=== PATIENT | male | born 1960 | race Asian ===

== ENCOUNTER 2023-04-03 17:26 | Emergency (ER) | payer OTHER, MEDICAID ==
[~2023-04-03] VITALS: Ht 180.3 cm; Wt 72.6 kg
[~2023-04-03 17:26] MED LIST: ACET325T PO; ASCO-339 PO; FERR-57 PO; GLIM4TAB PO; LOSA-413 PO; MOM PO; MULT PO; NEU300 PO; PANT20TA2 PO; PENT400T17 PO; PRAZ1CAP5 PO; QUET50TA PO; VENL150C53 PO
[2023-04-03 17:33] VITALS: BP_SYST 120; PULSE 76; RESP 16; TEMP 97.7; O2SAT 98
[2023-04-03] MEDS ORDERED: HYDR-3917 PO (20:45)
[2023-04-03] MEDS: HYDROcodone/ACETAMIN 5-325 MG TAB (NORCO/ VICODIN) PO ONE (21:13)
== END 2023-04-03 21:13 | disposition home or self-care (01) ==
LOC: SED 17:26
DX: S82.092A Other fracture of left patella, initial encounter for closed fracture (principal); S83.91XA Sprain of unspecified site of right knee, initial encounter; J45.909 Unspecified asthma, uncomplicated; Z88.4 Allergy status to anesthetic agent; Z79.899 Other long term (current) drug therapy; W01.0XXA Fall on same level from slipping, tripping and stumbling without subsequent striking against object, initial encounter; Y93.89 Activity, other specified; Y92.89 Other specified places as the place of occurrence of the external cause; Y99.8 Other external cause status
CPT/HCPCS: 73560; 99283

== ENCOUNTER 2023-05-24 15:27 | Inpatient (IN) | payer OTHER, MEDICAID ==
[~2023-05-24] VITALS: Ht 180.3 cm; Wt 82.6 kg
[~2023-05-24 15:27] MED LIST changes: +HYDR-3917 PO
[2023-05-24 15:37] VITALS: BP_SYST 103; PULSE 76; RESP 18; TEMP 97.3; O2SAT 98
[2023-05-24 17:01] LABS: MEAN CORPUSCULAR HEMOGLOBIN 31 pg (27-31); MEAN CORPUSCULAR HGB CONC 35 % (32-36); MEAN CORPUSCULAR VOLUME 86 fL (79.0-98.0); PLATELET COUNT (AUTO) 118 K/uL (130-430); RED BLOOD CELL COUNT(AUTO) 2.27 MIL/uL (4.2-6.2); RED CELL DISTRIBUTION WIDTH 17.1 % (9.0-15.0)
[2023-05-24 17:04] LABS: ANION GAP 9 (5-15); CALCIUM 7.8 mg/dL (8.4-11.0); CARBON DIOXIDE 24 mmol/L (23-29); CHLORIDE 104 mmol/L (98-107); GFR AFRICAN AMERICAN 21 mL/min (>90); GLUCOSE 136 mg/dL (74-106); POTASSIUM 4.5 mmol/L (3.5-5.1); SODIUM SERUM 137 mmol/L (136-145); UREA NITROGEN, BLOOD 57 mg/dL (8-21)
[2023-05-24 17:05] LABS: GFR NON AFRICAN-AMERICAN 18 mL/min (>90)
[2023-05-24 17:10] LABS: HEMATOCRIT 19.6 % (36-54); HEMOGLOBIN 6.9 g/dL (14.0-18.0)
[2023-05-24 18:00] LABS: BAND % (MANUAL) 0 % (0-6); BASOPHILS % (MANUAL) 0 % (0-2); EOSINOPHILS % (MANUAL) 4 % (0-7); LYMPHOCYTES % (MANUAL) 29 % (20-46); MONOCYTES % (MANUAL) 7 % (0-11)
[2023-05-24 18:01] LABS: ANISOCYTOSIS 1+; OVALOCYTES MODERATE; PLATELET ESTIMATE DECREASED (ADEQUATE); TEAR DROP CELLS FEW
[2023-05-24 18:30] LABS: INR 1.1 (0.80-1.20); PROTHROMBIN TIME 11.8 SECS (9.5-12.5)
[2023-05-24] MEDS ORDERED: SODI10PO PO (18:50)
[2023-05-24] MEDS ORDERED: NIFE-129 PO (18:50)
[2023-05-24] MEDS ORDERED: CARV25TA55 PO (18:50)
[2023-05-24] MEDS ORDERED: ERGO1250 (18:50)
[2023-05-24] MEDS ORDERED: SITA100T11 PO (18:50)
[2023-05-24] MEDS ORDERED: ESCI-6 PO (18:50)
[2023-05-24] MEDS ORDERED: MIRA50TA PO (18:50)
[2023-05-24] MEDS ORDERED: TORS5TAB PO (18:50)
[2023-05-24] MEDS ORDERED: FINA-37 PO (18:50)
[2023-05-24] MEDS ORDERED: INSU100I26 SQ (18:50)
[2023-05-24] MEDS ORDERED: TAMS-11 PO (18:50)
[2023-05-24] MEDS ORDERED: ALBMDI INH (18:50)
[2023-05-24 21:29] VITALS: BP_SYST 125; PULSE 75; RESP 20; TEMP 98.7
[2023-05-24 21:40] VITALS: O2SAT 98
[2023-05-25] VITALS (7 sets, daily range): BP systolic 129–181; PULSE 76–89; RESP 16–18; TEMP 97.3–97.8; O2SAT 97–99
[2023-05-25 08:03] LABS: BASOPHILS % (AUTO) 0.9 % (0.0-2.0); EOSINOPHILS # (AUTO) 0.1 K/uL (0.0-0.4); EOSINOPHILS % (AUTO) 6.8 % (0.0-4.0); HEMATOCRIT 26.8 % (36-54); LYMPHOCYTES # (AUTO) 0.5 K/uL (1.0-5.5); LYMPHOCYTES % (AUTO) 23.7 % (20.5-51.5); MEAN CORPUSCULAR HEMOGLOBIN 29 pg (27-31); MEAN CORPUSCULAR HGB CONC 34 % (32-36); MEAN CORPUSCULAR VOLUME 85 fL (79.0-98.0); MONOCYTES # (AUTO) 0.2 K/uL (0.0-1.0); MONOCYTES % (AUTO) 11.7 % (1.7-9.3); NEUTROPHILS # (AUTO) 1.1 K/uL (1.8-7.7); PLATELET COUNT (AUTO) 112 K/uL (130-430); RED BLOOD CELL COUNT(AUTO) 3.16 MIL/uL (4.2-6.2); RED CELL DISTRIBUTION WIDTH 17.6 % (9.0-15.0)
[2023-05-25 08:05] LABS: CALCIUM 7.8 mg/dL (8.4-11.0); CREATININE 3.28 mg/dL (0.55-1.30); POTASSIUM 4.3 mmol/L (3.5-5.1)
[2023-05-25 08:17] LABS: ALBUMIN 2.5 g/dL (3.4-4.8); THYROID STIMULATING HORMONE 1.11 uIu/mL (0.34-4.82); TOTAL BILIRUBIN 0.6 mg/dL (0.0-1.0)
[2023-05-25 08:19] LABS: WHITE BLOOD COUNT (AUTO) 1.9 K/uL (4.8-10.8)
[2023-05-25 08:20] LABS: NEUTROPHILS % (AUTO) 56.9 % (40.0-70.0)
[2023-05-25] MEDS ORDERED: PANT40TA45 PO (10:42)
[2023-05-25] MEDS ORDERED: SITA25TA3 PO (10:42)
[2023-05-25] MEDS ORDERED: GABA600T PO (10:42)
[2023-05-25] MEDS ORDERED: NIFE-75 PO (10:42)
[2023-05-25] MEDS ORDERED: MAGN250T10 PO (10:43)
[2023-05-25] MEDS: GABAPENTIN 300 MG CAPSULE PO SCH (15:14)
[2023-05-25] MEDS: CARVEDILOL 25 MG TABLET (COREG) PO SCH (21:40)
[2023-05-26] VITALS: BP_SYST 158; PULSE 82; RESP 16; TEMP 97.6; O2SAT 97
[2023-05-26 06:00] LABS: BASOPHILS % (AUTO) 0.9 % (0.0-2.0); EOSINOPHILS # (AUTO) 0.1 K/uL (0.0-0.4); EOSINOPHILS % (AUTO) 5.6 % (0.0-4.0); HEMOGLOBIN 9.4 g/dL (14.0-18.0); LYMPHOCYTES # (AUTO) 0.6 K/uL (1.0-5.5); LYMPHOCYTES % (AUTO) 24.7 % (20.5-51.5); MEAN CORPUSCULAR HEMOGLOBIN 28 pg (27-31); MEAN CORPUSCULAR HGB CONC 34 % (32-36); MEAN CORPUSCULAR VOLUME 84 fL (79.0-98.0); MONOCYTES # (AUTO) 0.3 K/uL (0.0-1.0); MONOCYTES % (AUTO) 12.1 % (1.7-9.3); NEUTROPHILS # (AUTO) 1.4 K/uL (1.8-7.7); PLATELET COUNT (AUTO) 110 K/uL (130-430); RED BLOOD CELL COUNT(AUTO) 3.33 MIL/uL (4.2-6.2); RETICULOCYTE COUNT 0.8 % (0.5-1.5); WHITE BLOOD COUNT (AUTO) 2.4 K/uL (4.8-10.8)
[2023-05-26 06:50] LABS: TOTAL IRON BIND. CAPACITY 168 ug/dL (250-450)
[2023-05-26 07:06] LABS: CREATININE 3.2 mg/dL (0.55-1.30); PHOSPHORUS 3.6 mg/dL (2.7-4.5); POTASSIUM 4.3 mmol/L (3.5-5.1)
[2023-05-26 07:40] LABS: NEUTROPHILS % (AUTO) 56.7 % (40.0-70.0)
[2023-05-26 08:00] VITALS: BP_SYST 177; PULSE 67; RESP 13; TEMP 98.4; O2SAT 97
[2023-05-26] MEDS ORDERED: SODIUM ZIRCONIUM CYCLOSILICATE 10 GM POWD.PACK PO SCH (09:00)
[2023-05-26] MEDS ORDERED: NON-FORMULARY MEDICATION (Mirabegron (Myrbetriq) 50 MG) PO SCH (09:00)
[2023-05-26] MEDS: CITALOPRAM HYDROBROMIDE 20 MG TABLET PO SCH (09:35)
[2023-05-26] MEDS: TAMSULOSIN HCL 0.4 MG CAP PO SCH (09:35)
[2023-05-26] MEDS: PANTOPRAZOLE SODIUM 40 MG TAB PO SCH (09:36)
[2023-05-26] MEDS: MAGNESIUM OXIDE 400 MG TABLET PO SCH (09:36)
[2023-05-26] MEDS: FINASTERIDE 5 MG TABLET (PROSCAR) PO SCH (09:36)
[2023-05-26] MEDS: NIFEdipine 30 MG TAB.ER.24 PO SCH (09:36)
[2023-05-26 11:10] VITALS: BP_SYST 109; PULSE 100; RESP 16; TEMP 96.3; O2SAT 92
[2023-05-26 12:00] VITALS: BP_SYST 171; PULSE 74; RESP 16; TEMP 97.3; O2SAT 98
[2023-05-26 14:05] VITALS: BP_SYST 171; PULSE 74; RESP 14; TEMP 97.9; O2SAT 98
[2023-05-26] MEDS: cloNIDine HCL 0.1 MG TABLET PO ONE (14:33)
[2023-05-26 14:44] VITALS: BP_SYST 171; PULSE 74; RESP 14; TEMP 97.9; O2SAT 98
[2023-05-27] MEDS ORDERED: FOLIC ACID 1 MG TABLET PO SCH (09:00)
[2023-05-29] MEDS ORDERED: EPOETIN ALFA-EPBX 3,000 UNITS/ML VIAL SUBCUT SCH (17:00)
== END 2023-05-26 15:50 | disposition home health service (06) | DRG 808 ==
LOC: SED 15:27 → SMU 17:59
PROVIDERS: ADMIT Internal Medicine; ATTEND Internal Medicine
PROC: 30233N1 Transfusion of Nonautologous Red Blood Cells into Peripheral Vein, Percutaneous Approach (ICD-10-PCS; principal; 2023-05-24)
PROC: 30233N1 Transfusion of Nonautologous Red Blood Cells into Peripheral Vein, Percutaneous Approach (ICD-10-PCS; 2023-05-25)
DX: D61.818 Other pancytopenia (principal); E43 Unspecified severe protein-calorie malnutrition; N18.4 Chronic kidney disease, stage 4 (severe); D64.9 Anemia, unspecified; F17.200 Nicotine dependence, unspecified, uncomplicated; I12.9 Hypertensive chronic kidney disease with stage 1 through stage 4 chronic kidney disease, or unspecified chronic kidney disease; E11.22 Type 2 diabetes mellitus with diabetic chronic kidney disease; E11.40 Type 2 diabetes mellitus with diabetic neuropathy, unspecified; E11.51 Type 2 diabetes mellitus with diabetic peripheral angiopathy without gangrene; J45.909 Unspecified asthma, uncomplicated; K21.9 Gastro-esophageal reflux disease without esophagitis; I87.8 Other specified disorders of veins; N40.0 Benign prostatic hyperplasia without lower urinary tract symptoms; Z89.511 Acquired absence of right leg below knee; Z88.8 Allergy status to other drugs, medicaments and biological substances; Z79.899 Other long term (current) drug therapy; Z79.4 Long term (current) use of insulin; Z79.51 Long term (current) use of inhaled steroids; Z68.25 Body mass index [BMI] 25.0-25.9, adult
CPT/HCPCS: 36415; 71045; 76700; 76770; 80048; 80053; 80061; 82948; 83540; 83550; 83735; 84100; 84443; 84484; 85007; 85025; 85027; 85044; 85610; 85730; 86886; 86900; 86901; 86920; 93005; 93971; 99285; P9021

== ENCOUNTER 2023-06-12 06:22 | Inpatient (IN) | payer OTHER, MEDICAID ==
[~2023-06-12] VITALS: Ht 180.3 cm; Wt 88.0 kg
[~2023-06-12 06:22] MED LIST changes: -ACET325T PO; -ASCO-339 PO; +CARV25TA55 PO; +ESCI-6 PO; -FERR-57 PO; +FINA-37 PO; +GABA600T PO; -GLIM4TAB PO; -HYDR-3917 PO; +INSU100I26 SQ; -LOSA-413 PO; +MAGN250T10 PO; +MIRA50TA PO; -MOM PO; -MULT PO; -NEU300 PO; +NIFE-75 PO; -PANT20TA2 PO; +PANT40TA45 PO; -PENT400T17 PO; -PRAZ1CAP5 PO; -QUET50TA PO; +SITA25TA3 PO; +SODI10PO PO; +TAMS-11 PO; -VENL150C53 PO
[2023-06-12 06:37] VITALS: BP_SYST 143; PULSE 84; RESP 16; TEMP 97.3; O2SAT 99
[2023-06-12 07:10] LABS: BASOPHILS % (AUTO) 1.2 % (0.0-2.0); EOSINOPHILS # (AUTO) 0.1 K/uL (0.0-0.4); EOSINOPHILS % (AUTO) 4.3 % (0.0-4.0); HEMOGLOBIN 7.3 g/dL (14.0-18.0); LYMPHOCYTES # (AUTO) 0.7 K/uL (1.0-5.5); LYMPHOCYTES % (AUTO) 25.7 % (20.5-51.5); MEAN CORPUSCULAR HEMOGLOBIN 29 pg (27-31); MEAN CORPUSCULAR HGB CONC 34 % (32-36); MEAN CORPUSCULAR VOLUME 86 fL (79.0-98.0); MONOCYTES # (AUTO) 0.2 K/uL (0.0-1.0); MONOCYTES % (AUTO) 8.6 % (1.7-9.3); NEUTROPHILS # (AUTO) 1.6 K/uL (1.8-7.7); NEUTROPHILS % (AUTO) 60.2 % (40.0-70.0); PLATELET COUNT (AUTO) 114 K/uL (130-430); RED BLOOD CELL COUNT(AUTO) 2.53 MIL/uL (4.2-6.2); RED CELL DISTRIBUTION WIDTH 17.8 % (9.0-15.0); WHITE BLOOD COUNT (AUTO) 2.6 K/uL (4.8-10.8)
[2023-06-12 07:25] LABS: CALCIUM 7.9 mg/dL (8.4-11.0); CREATININE 3.73 mg/dL (0.55-1.30); POTASSIUM 4.9 mmol/L (3.5-5.1)
[2023-06-12 07:29] LABS: ALBUMIN 2.5 g/dL (3.4-4.8); BILIRUBIN,DIRECT 0.1 mg/dL (0.0-0.3); TOTAL BILIRUBIN 0.2 mg/dL (0.0-1.0)
[2023-06-12 07:35] LABS: HEMATOCRIT 21.7 % (36-54)
[2023-06-12] MEDS ORDERED: MORPHINE 2 MG/ML INJ. SYRINGE IVP PRN ×2 (09:30)
[2023-06-12] MEDS ORDERED: MAGNESIUM SULFATE 50 ML IV PRN (09:30)
[2023-06-12] MEDS ORDERED: ACETAMINOPHEN 500 MG TABLET PO PRN ×2 (09:30→10:30)
[2023-06-12] MEDS ORDERED: ONDANSETRON HCL 4 MG/2 ML VIAL IVP PRN (09:30)
[2023-06-12] MEDS ORDERED: DEXTROSE 50% JECT 50 ML DISP.SYRIN IVP PRN (09:30)
[2023-06-12] MEDS ORDERED: LORazepam 2 MG/ML VIAL IVP PRN (09:30)
[2023-06-12] MEDS ORDERED: ZOLPIDEM TARTRATE 5 MG TABLET PO PRN (09:30)
[2023-06-12] MEDS ORDERED: POTASSIUM CHLORIDE 20 MEQ TABLET.ER PO PRN (09:30)
[2023-06-12] MEDS ORDERED: DOCUSATE SODIUM 100 MG CAPSULE PO PRN (09:30)
[2023-06-12] MEDS ORDERED: MUPIROCIN 2% TOPICAL OINTMENT 22 GM NS PRN (09:30)
[2023-06-12 10:56] LABS: TOTAL IRON BIND. CAPACITY 183 ug/dL (250-450)
[2023-06-12] MEDS: NACL 0.9% 1,000 ML IV SCH (12:15)
[2023-06-12] MEDS ORDERED: INSULIN Lispro 100 UNITS/ML, 3 ML VIAL (humaLOG) ONE (12:21)
[2023-06-12] MEDS: INSULIN LISPRO SLIDING SCALE 100 UNITS/ML, 3 ML VIAL (humaLOG) SUBCUT PRN (12:24)
[2023-06-12 12:39] LABS: BILIRUBIN,URINE NEGATIVE (NEGATIVE); BLOOD, URINE 1+ (NEGATIVE); CLARITY/URINE CLEAR (CLEAR); COLOR,URINE YELLOW (YELLOW); GLUCOSE,URINE 1+ (NEGATIVE); KETONES,URINE NEGATIVE (NEGATIVE); LEUKOCYTE ESTERASE ,URINE NEGATIVE (NEGATIVE); NITRITE, URINE NEGATIVE (NEGATIVE); PROTEIN URINE 2+ (NEGATIVE); UROBILINOGEN,URINE 0.2 (0.2-1.0)
[2023-06-12 13:06] LABS: BACTERIA,URINE None Seen /HPF (None Seen); WBC,URINE NONE SEEN /HPF (0-3)
[2023-06-12] MEDS: GABAPENTIN 300 MG CAPSULE PO SCH (16:39)
[2023-06-12] MEDS ORDERED: CARVEDILOL 6.25 MG TABLET (COREG) ONE (21:34)
[2023-06-12] MEDS: CARVEDILOL 25 MG TABLET (COREG) PO SCH (21:43)
[2023-06-13 04:44] LABS: BASOPHILS % (AUTO) 0.9 % (0.0-2.0); EOSINOPHILS # (AUTO) 0.1 K/uL (0.0-0.4); EOSINOPHILS % (AUTO) 4.4 % (0.0-4.0); LYMPHOCYTES # (AUTO) 0.6 K/uL (1.0-5.5); LYMPHOCYTES % (AUTO) 24.4 % (20.5-51.5); MEAN CORPUSCULAR HEMOGLOBIN 29 pg (27-31); MEAN CORPUSCULAR HGB CONC 33 % (32-36); MEAN CORPUSCULAR VOLUME 86 fL (79.0-98.0); MONOCYTES # (AUTO) 0.2 K/uL (0.0-1.0); MONOCYTES % (AUTO) 8.5 % (1.7-9.3); NEUTROPHILS # (AUTO) 1.5 K/uL (1.8-7.7); NEUTROPHILS % (AUTO) 61.8 % (40.0-70.0); PLATELET COUNT (AUTO) 125 K/uL (130-430); RED BLOOD CELL COUNT(AUTO) 2.41 MIL/uL (4.2-6.2); RED CELL DISTRIBUTION WIDTH 17.5 % (9.0-15.0); WHITE BLOOD COUNT (AUTO) 2.4 K/uL (4.8-10.8)
[2023-06-13 05:01] LABS: CALCIUM 7.8 mg/dL (8.4-11.0); CREATININE 3.85 mg/dL (0.55-1.30); POTASSIUM 5.4 mmol/L (3.5-5.1)
[2023-06-13 06:31] LABS: HEMATOCRIT 20.8 % (36-54)
[2023-06-13] MEDS ORDERED: INSULIN Lispro 100 UNITS/ML, 3 ML VIAL (humaLOG) ONE ×2 (09:27→11:56)
[2023-06-13] MEDS: FINASTERIDE 5 MG TABLET (PROSCAR) PO SCH (09:34)
[2023-06-13] MEDS: NIFEdipine 30 MG TAB.ER.24 PO SCH (09:34)
[2023-06-13] MEDS: PANTOPRAZOLE SODIUM 40 MG TAB PO SCH (09:34)
[2023-06-13] MEDS: SODIUM ZIRCONIUM CYCLOSILICATE 10 GM POWD.PACK PO SCH (09:34)
[2023-06-13] MEDS: TAMSULOSIN HCL 0.4 MG CAP PO SCH (09:35)
[2023-06-13] MEDS: CITALOPRAM HYDROBROMIDE 20 MG TABLET PO SCH (09:35)
[2023-06-13] MEDS: SODIUM POLYSTYRENE SULFONATE 15 GM/60 ML UDBTL PO ONE (09:35)
[2023-06-13] MEDS: FERROUS GLUCONATE 324 MG TABLET PO SCH (09:35)
[2023-06-13 09:45] LABS: INR 1.1 (0.80-1.20)
[2023-06-13] MEDS ORDERED: MORPHINE 2 MG/ML INJ. SYRINGE ONE (12:56)
[2023-06-13 14:10] VITALS: BP_SYST 162; PULSE 86; RESP 18; TEMP 98.8; O2SAT 98
[2023-06-13] MEDS: FUROSEMIDE 40 MG/4 ML VIAL IVP ONE (16:43)
[2023-06-13] MEDS: NIFEdipine 30 MG TAB.ER.24 PO ONE (16:47)
[2023-06-13] MEDS: EPOETIN ALFA-EPBX 10,000 UNITS/ML VIAL SUBCUT SCH (18:16)
[2023-06-13 18:43] VITALS: BP_SYST 159; PULSE 84; RESP 18; TEMP 98.4; O2SAT 99
[2023-06-13 20:00] VITALS: BP_SYST 133; PULSE 73; RESP 18; TEMP 97.7; O2SAT 99
[2023-06-13 20:27] VITALS: BP_SYST 155; PULSE 77; RESP 18; TEMP 98; O2SAT 97
[2023-06-14] VITALS: BP_SYST 133; PULSE 81; RESP 18; TEMP 98.2; O2SAT 96
[2023-06-14 06:16] LABS: BASOPHILS % (AUTO) 0.9 % (0.0-2.0); EOSINOPHILS # (AUTO) 0.1 K/uL (0.0-0.4); EOSINOPHILS % (AUTO) 4.3 % (0.0-4.0); HEMOGLOBIN 7.1 g/dL (14.0-18.0); LYMPHOCYTES # (AUTO) 0.6 K/uL (1.0-5.5); LYMPHOCYTES % (AUTO) 21.3 % (20.5-51.5); MEAN CORPUSCULAR HEMOGLOBIN 29 pg (27-31); MEAN CORPUSCULAR HGB CONC 34 % (32-36); MEAN CORPUSCULAR VOLUME 87 fL (79.0-98.0); MONOCYTES # (AUTO) 0.3 K/uL (0.0-1.0); MONOCYTES % (AUTO) 9.4 % (1.7-9.3); NEUTROPHILS % (AUTO) 64.1 % (40.0-70.0); PLATELET COUNT (AUTO) 138 K/uL (130-430); RED BLOOD CELL COUNT(AUTO) 2.42 MIL/uL (4.2-6.2); RED CELL DISTRIBUTION WIDTH 17.8 % (9.0-15.0); WHITE BLOOD COUNT (AUTO) 3.1 K/uL (4.8-10.8)
[2023-06-14 06:38] LABS: CALCIUM 7.9 mg/dL (8.4-11.0); CREATININE 3.73 mg/dL (0.55-1.30); PHOSPHORUS 3.9 mg/dL (2.7-4.5); POTASSIUM 5.1 mmol/L (3.5-5.1)
[2023-06-14 07:50] VITALS: BP_SYST 122; PULSE 80; RESP 16; TEMP 97; O2SAT 100
[2023-06-14 08:00] VITALS: O2SAT 96
[2023-06-14] MEDS: NIFEDIPINE 90 MG TABLET.SA (PROCARDIA XL 90 MG) PO SCH (10:42)
[2023-06-14 11:17] VITALS: BP_SYST 129; PULSE 81; RESP 16; TEMP 97.1; O2SAT 98
[2023-06-14 12:14] VITALS: BP_SYST 142; PULSE 68; RESP 16; TEMP 97; O2SAT 97
[2023-06-14 19:26] LABS: URINE SODIUM, RANDOM 114 mmol/L (40-220)
[2023-06-15 13:06] LABS: CREATININE, URINE 23.9 mg/dL (Not Estab.); MICROALBUMIN URINE RANDOM 835.2 ug/mL (Not Estab.)
== END 2023-06-14 13:10 | disposition home or self-care (01) | DRG 682 ==
LOC: SED 06:22 → SMU 09:32
PROVIDERS: ADMIT General Practice; ATTEND General Practice
DX: N17.0 Acute kidney failure with tubular necrosis (principal); E43 Unspecified severe protein-calorie malnutrition; D61.818 Other pancytopenia; I13.0 Hypertensive heart and chronic kidney disease with heart failure and stage 1 through stage 4 chronic kidney disease, or unspecified chronic kidney disease; I50.32 Chronic diastolic (congestive) heart failure; D50.9 Iron deficiency anemia, unspecified; E11.40 Type 2 diabetes mellitus with diabetic neuropathy, unspecified; E11.65 Type 2 diabetes mellitus with hyperglycemia; N40.0 Benign prostatic hyperplasia without lower urinary tract symptoms; E11.22 Type 2 diabetes mellitus with diabetic chronic kidney disease; D72.819 Decreased white blood cell count, unspecified; E87.5 Hyperkalemia; K76.0 Fatty (change of) liver, not elsewhere classified; E11.51 Type 2 diabetes mellitus with diabetic peripheral angiopathy without gangrene; N18.9 Chronic kidney disease, unspecified; Z89.511 Acquired absence of right leg below knee; Z79.899 Other long term (current) drug therapy; Z68.27 Body mass index [BMI] 27.0-27.9, adult; F17.200 Nicotine dependence, unspecified, uncomplicated
CPT/HCPCS: 36415; 70450-TC; 80048; 80076; 81000; 81001; 81015; 82043; 82272; 82570; 82948; 83037; 83540; 83550; 83690; 83735; 84100; 84302; 84484; 85025; 85610; 87081; 93005; 93306; 93970; 97116-GP; 99285; J1940; J2270; Q5106

== ENCOUNTER 2023-08-24 09:04 | Inpatient (IN) | payer OTHER, MEDICAID ==
[~2023-08-24] VITALS: Ht 180.3 cm; Wt 88.9 kg
[2023-08-24 09:21] VITALS: BP_SYST 154; PULSE 85; RESP 18; TEMP 97.8; O2SAT 100
[2023-08-24 10:33] LABS: ERYTHROCYTE SEDIMENTATION RATE 63 MM/HR (0-15)
[2023-08-24 10:35] LABS: BASOPHILS % (AUTO) 0.9 % (0.0-2.0); EOSINOPHILS # (AUTO) 0.2 K/uL (0.0-0.4); EOSINOPHILS % (AUTO) 5.3 % (0.0-4.0); HEMATOCRIT 23.4 % (36-54); HEMOGLOBIN 7.7 g/dL (14.0-18.0); LYMPHOCYTES # (AUTO) 0.5 K/uL (1.0-5.5); LYMPHOCYTES % (AUTO) 14.1 % (20.5-51.5); MEAN CORPUSCULAR HEMOGLOBIN 30 pg (27-31); MEAN CORPUSCULAR HGB CONC 33 % (32-36); MEAN CORPUSCULAR VOLUME 92 fL (79.0-98.0); MONOCYTES # (AUTO) 0.3 K/uL (0.0-1.0); MONOCYTES % (AUTO) 9.4 % (1.7-9.3); NEUTROPHILS # (AUTO) 2.3 K/uL (1.8-7.7); NEUTROPHILS % (AUTO) 70.3 % (40.0-70.0); PLATELET COUNT (AUTO) 214 K/uL (130-430); RED BLOOD CELL COUNT(AUTO) 2.55 MIL/uL (4.2-6.2); RED CELL DISTRIBUTION WIDTH 16.2 % (9.0-15.0); WHITE BLOOD COUNT (AUTO) 3.3 K/uL (4.8-10.8)
[2023-08-24 11:20] LABS: POTASSIUM 4.1 mmol/L (3.5-5.1)
[2023-08-24 11:21] LABS: CALCIUM 7.8 mg/dL (8.4-11.0); CREATININE 4.33 mg/dL (0.55-1.30)
[2023-08-24] MEDS ORDERED: INSULIN REGULAR, HUMAN 100 UNITS/ML, 3 ML VIAL (humuLIN R) SUBCUT PRN (14:00)
[2023-08-24] MEDS ORDERED: VANCOMYCIN HCL 1000 MG/VIAL IV ONE (14:08)
[2023-08-24] MEDS: VANCOMYCIN HCL 1,000 MG in NS 250 ML IV ONE (14:17)
[2023-08-24] MEDS ORDERED: POTASSIUM CHLORIDE 20 MEQ TABLET.ER PO PRN (14:30)
[2023-08-24] MEDS ORDERED: MAGNESIUM SULFATE 50 ML IV PRN (14:30)
[2023-08-24] MEDS ORDERED: ZOLPIDEM TARTRATE 5 MG TABLET PO PRN (14:30)
[2023-08-24] MEDS ORDERED: MORPHINE 2 MG/ML INJ. SYRINGE IVP PRN ×2 (14:30)
[2023-08-24] MEDS ORDERED: ONDANSETRON HCL 4 MG/2 ML VIAL IVP PRN (14:30)
[2023-08-24] MEDS ORDERED: LORazepam 2 MG/ML VIAL IVP PRN (14:30)
[2023-08-24] MEDS ORDERED: DOCUSATE SODIUM 100 MG CAPSULE PO PRN (14:30)
[2023-08-24] MEDS ORDERED: cloNIDine HCL 0.2 MG TABLET PO PRN (14:30)
[2023-08-24] MEDS ORDERED: ACETAMINOPHEN 325 MG TABLET PO PRN ×2 (14:30→15:45)
[2023-08-24] MEDS: GABAPENTIN 300 MG CAPSULE PO SCH (15:00)
[2023-08-24 15:06] LABS: TOTAL IRON BIND. CAPACITY 140 ug/dL (250-450)
[2023-08-24 17:00] VITALS: BP_SYST 112; PULSE 80; RESP 17; TEMP 97.3; O2SAT 98
[2023-08-24 17:05] VITALS: O2SAT 98
[2023-08-24] MEDS: NACL 0.9% 1,000 ML IV SCH (17:46)
[2023-08-24 18:01] VITALS: BP_SYST 112; PULSE 80; RESP 17; TEMP 97.3
[2023-08-24 20:00] VITALS: BP_SYST 126; PULSE 82; RESP 16; TEMP 98.1; O2SAT 97
[2023-08-24] MEDS: CARVEDILOL 25 MG TABLET (COREG) PO SCH (21:31)
[2023-08-24] MEDS: HEPARIN SODIUM,PORCINE 5,000 UNITS/ML VIAL SUBCUT SCH (21:34)
[2023-08-25 04:00] VITALS: BP_SYST 152; PULSE 77; RESP 18; TEMP 98.1; O2SAT 97
[2023-08-25 08:00] LABS: BARBITURATE, URINE NEGATIVE (NEG <=200); BENZODIAZEPINE, URINE NEGATIVE (NEG <=150); CANNABINOID, URINE NEGATIVE (NEG <=50); COCAINE, URINE NEGATIVE (NEG <=150); METHAMPHETAMINES SCREEN,URINE NEGATIVE (NEG <=500); OPIATE, URINE NEGATIVE (NEG <=100); PHENCYCLIDINE SCREEN,URINE NEGATIVE (NEG <=25); URINE AMPHETAMINE NEGATIVE (NEG <=500); URINE METHADONE NEGATIVE (NEG <=200); URINE OXYCODONE SCREEN NEGATIVE (NEG <=100)
[2023-08-25 08:04] LABS: UR TRICYCLIC ANTIDEPRESSANTS NEGATIVE (NEG <=300)
[2023-08-25 08:35] VITALS: BP_SYST 145; PULSE 18; RESP 18; TEMP 98.6; O2SAT 78
[2023-08-25 09:00] LABS: BASOPHILS % (AUTO) 1.2 % (0.0-2.0); EOSINOPHILS # (AUTO) 0.2 K/uL (0.0-0.4); EOSINOPHILS % (AUTO) 6.9 % (0.0-4.0); HEMATOCRIT 22.6 % (36-54); HEMOGLOBIN 7.6 g/dL (14.0-18.0); LYMPHOCYTES # (AUTO) 0.4 K/uL (1.0-5.5); LYMPHOCYTES % (AUTO) 12.2 % (20.5-51.5); MEAN CORPUSCULAR HEMOGLOBIN 30 pg (27-31); MEAN CORPUSCULAR HGB CONC 33 % (32-36); MEAN CORPUSCULAR VOLUME 91 fL (79.0-98.0); MONOCYTES # (AUTO) 0.3 K/uL (0.0-1.0); MONOCYTES % (AUTO) 9.3 % (1.7-9.3); NEUTROPHILS # (AUTO) 2.2 K/uL (1.8-7.7); NEUTROPHILS % (AUTO) 70.4 % (40.0-70.0); PLATELET COUNT (AUTO) 214 K/uL (130-430); RED CELL DISTRIBUTION WIDTH 16.3 % (9.0-15.0); WHITE BLOOD COUNT (AUTO) 3.1 K/uL (4.8-10.8)
[2023-08-25] MEDS ORDERED: ESCITALOPRAM OXALATE 10 MG TABLET PO SCH (09:00)
[2023-08-25] MEDS ORDERED: NON-FORMULARY MEDICATION (Mirabegron (Myrbetriq) 50 MG) PO SCH (09:00)
[2023-08-25] MEDS ORDERED: SODIUM ZIRCONIUM CYCLOSILICATE 10 GM POWD.PACK PO SCH (09:00)
[2023-08-25 09:05] LABS: CALCIUM 7.9 mg/dL (8.4-11.0); CREATININE 4.46 mg/dL (0.55-1.30); POTASSIUM 4.8 mmol/L (3.5-5.1)
[2023-08-25] MEDS: FERROUS SULFATE 325 MG TABLET.DR PO SCH (09:26)
[2023-08-25] MEDS: CITALOPRAM HYDROBROMIDE 20 MG TABLET PO SCH (09:26)
[2023-08-25] MEDS: TAMSULOSIN HCL 0.4 MG CAP PO SCH (09:26)
[2023-08-25] MEDS: NIFEdipine 30 MG TAB.ER.24 PO SCH (09:29)
[2023-08-25] MEDS: FINASTERIDE 5 MG TABLET (PROSCAR) PO SCH (09:29)
[2023-08-25] MEDS: cefTRIAXone 1 GM in D5W 50 ML IV SCH (09:37)
[2023-08-25] MEDS ORDERED: metroNIDAZOLE 250 mg/NS 50 ML IV SCH (10:45)
[2023-08-25 11:06] VITALS: BP_SYST 164; PULSE 84; RESP 16; TEMP 97.6; O2SAT 97
[2023-08-25] MEDS ORDERED: ACETAMINOPHEN 500 MG TABLET PO PRN ×2 (11:08→11:09)
[2023-08-25] MEDS: INSULIN REGULAR, HUMAN 100 UNITS/ML, 3 ML VIAL (humuLIN R) SUBCUT PRN (11:12)
[2023-08-25] MEDS: metroNIDAZOLE 250 MG TABLET PO ONE (11:28)
[2023-08-25] MEDS: metroNIDAZOLE 250 MG TABLET PO SCH (15:05)
[2023-08-25 16:03] VITALS: BP_SYST 149; PULSE 71; RESP 14; TEMP 97; O2SAT 96
[2023-08-25 19:00] VITALS: O2SAT 98
[2023-08-25 20:00] VITALS: BP_SYST 128; RESP 18; TEMP 98.4; O2SAT 98
[2023-08-25 20:07] LABS: BILIRUBIN,URINE NEGATIVE (NEGATIVE); CLARITY/URINE CLEAR (CLEAR); COLOR,URINE YELLOW (YELLOW); GLUCOSE,URINE 1+ (NEGATIVE); KETONES,URINE NEGATIVE (NEGATIVE); LEUKOCYTE ESTERASE ,URINE NEGATIVE (NEGATIVE); NITRITE, URINE NEGATIVE (NEGATIVE); PROTEIN URINE 3+ (NEGATIVE); UROBILINOGEN,URINE 0.2 (0.2-1.0)
[2023-08-25 20:17] LABS: BLOOD, URINE TRACE (NEGATIVE)
[2023-08-25 20:18] LABS: BACTERIA,URINE RARE /HPF (None Seen); MUCUS,URINE None Seen /LPF (None Seen); RBC,URINE 0-3 /HPF (0-3); WBC,URINE 0-3 /HPF (0-3)
[2023-08-25] MEDS: CLINDAMYCIN 600 mg/50mL D5W 50 ML IV SCH (20:58)
[2023-08-25] MEDS: LACTOBACILLUS RHAMNOSUS GG 1 CAP CAPSULE PO SCH (21:02)
[2023-08-26 04:00] VITALS: BP_SYST 123; PULSE 68; RESP 18; TEMP 97.7; O2SAT 97
[2023-08-26 06:47] LABS: BASOPHILS % (AUTO) 1.1 % (0.0-2.0); EOSINOPHILS # (AUTO) 0.2 K/uL (0.0-0.4); LYMPHOCYTES # (AUTO) 0.3 K/uL (1.0-5.5); LYMPHOCYTES % (AUTO) 14.3 % (20.5-51.5); MEAN CORPUSCULAR HEMOGLOBIN 29 pg (27-31); MEAN CORPUSCULAR HGB CONC 33 % (32-36); MEAN CORPUSCULAR VOLUME 90 fL (79.0-98.0); MONOCYTES # (AUTO) 0.3 K/uL (0.0-1.0); MONOCYTES % (AUTO) 11.6 % (1.7-9.3); NEUTROPHILS # (AUTO) 1.5 K/uL (1.8-7.7); PLATELET COUNT (AUTO) 188 K/uL (130-430); RED BLOOD CELL COUNT(AUTO) 2.32 MIL/uL (4.2-6.2); RED CELL DISTRIBUTION WIDTH 16.5 % (9.0-15.0); WHITE BLOOD COUNT (AUTO) 2.3 K/uL (4.8-10.8)
[2023-08-26 07:07] LABS: ALBUMIN 1.5 g/dL (3.4-4.8); CALCIUM 7.7 mg/dL (8.4-11.0); CREATININE 4.21 mg/dL (0.55-1.30); PHOSPHORUS 3.9 mg/dL (2.7-4.5); POTASSIUM 4.8 mmol/L (3.5-5.1); TOTAL BILIRUBIN 0.2 mg/dL (0.0-1.0); TOTAL PROTEIN, SERUM 6.7 g/dL (6.4-8.3)
[2023-08-26 08:00] VITALS: BP_SYST 150; PULSE 78; RESP 16; TEMP 98.4; O2SAT 96
[2023-08-26 08:30] LABS: HEMATOCRIT 20.9 % (36-54); HEMOGLOBIN 6.8 g/dL (14.0-18.0)
[2023-08-26] MEDS: MIRABEGRON 50 MG PO SCH (09:00)
[2023-08-26] MEDS: FOLIC ACID 1 MG TABLET PO SCH (09:15)
[2023-08-26 12:38] VITALS: BP_SYST 142; PULSE 74; RESP 17; TEMP 98; O2SAT 98
[2023-08-26 16:09] VITALS: BP_SYST 148; PULSE 76; RESP 16; TEMP 98.2; O2SAT 97
[2023-08-26 20:00] VITALS: BP_SYST 137; PULSE 72; RESP 20; TEMP 97.7; O2SAT 95; O2SAT 97
[2023-08-27] VITALS (7 sets, daily range): BP systolic 132–166; PULSE 70–77; RESP 16–18; TEMP 96.7–98; O2SAT 94–99
[2023-08-27 06:38] LABS: BASOPHILS % (AUTO) 0.7 % (0.0-2.0); EOSINOPHILS # (AUTO) 0.2 K/uL (0.0-0.4); EOSINOPHILS % (AUTO) 6.6 % (0.0-4.0); HEMATOCRIT 28.2 % (36-54); HEMOGLOBIN 9.4 g/dL (14.0-18.0); LYMPHOCYTES # (AUTO) 0.5 K/uL (1.0-5.5); LYMPHOCYTES % (AUTO) 15.3 % (20.5-51.5); MEAN CORPUSCULAR HEMOGLOBIN 30 pg (27-31); MEAN CORPUSCULAR HGB CONC 33 % (32-36); MEAN CORPUSCULAR VOLUME 90 fL (79.0-98.0); MONOCYTES # (AUTO) 0.4 K/uL (0.0-1.0); MONOCYTES % (AUTO) 12.2 % (1.7-9.3); NEUTROPHILS # (AUTO) 2.2 K/uL (1.8-7.7); NEUTROPHILS % (AUTO) 65.2 % (40.0-70.0); PLATELET COUNT (AUTO) 187 K/uL (130-430); RED BLOOD CELL COUNT(AUTO) 3.15 MIL/uL (4.2-6.2); WHITE BLOOD COUNT (AUTO) 3.4 K/uL (4.8-10.8)
[2023-08-27 07:07] LABS: CALCIUM 7.9 mg/dL (8.4-11.0); CREATININE 4.01 mg/dL (0.55-1.30); PHOSPHORUS 4.4 mg/dL (2.7-4.5)
[2023-08-27 07:42] LABS: POTASSIUM 5.9 mmol/L (3.5-5.1)
[2023-08-27] MEDS: SODIUM ZIRCONIUM CYCLOSILICATE 10 GM POWD.PACK PO ONE (09:15)
[2023-08-28 00:05] VITALS: BP_SYST 147; PULSE 75; RESP 16; TEMP 97.4; O2SAT 96
[2023-08-28 05:43] LABS: EOSINOPHILS # (AUTO) 0.2 K/uL (0.0-0.4); HEMATOCRIT 28.8 % (36-54); HEMOGLOBIN 9.4 g/dL (14.0-18.0); LYMPHOCYTES # (AUTO) 0.6 K/uL (1.0-5.5); LYMPHOCYTES % (AUTO) 18.9 % (20.5-51.5); MEAN CORPUSCULAR HEMOGLOBIN 29 pg (27-31); MEAN CORPUSCULAR HGB CONC 33 % (32-36); MEAN CORPUSCULAR VOLUME 90 fL (79.0-98.0); MONOCYTES # (AUTO) 0.4 K/uL (0.0-1.0); MONOCYTES % (AUTO) 12.3 % (1.7-9.3); NEUTROPHILS # (AUTO) 1.9 K/uL (1.8-7.7); NEUTROPHILS % (AUTO) 61.8 % (40.0-70.0); PLATELET COUNT (AUTO) 193 K/uL (130-430); RED BLOOD CELL COUNT(AUTO) 3.21 MIL/uL (4.2-6.2); WHITE BLOOD COUNT (AUTO) 3.1 K/uL (4.8-10.8)
[2023-08-28 05:57] LABS: CALCIUM 7.9 mg/dL (8.4-11.0); CREATININE 4.36 mg/dL (0.55-1.30); POTASSIUM 5.5 mmol/L (3.5-5.1)
[2023-08-28] MEDS: MUPIROCIN 2% TOPICAL OINTMENT 22 GM NS SCH (08:39)
[2023-08-28] MEDS: SODIUM ZIRCONIUM CYCLOSILICATE 10 GM POWD.PACK PO ONE (08:53)
[2023-08-28 09:04] VITALS: BP_SYST 149; PULSE 76; RESP 18; TEMP 97.6; O2SAT 99
[2023-08-28 12:07] VITALS: BP_SYST 157; PULSE 78; RESP 18; TEMP 97.2; O2SAT 97
[2023-08-28] MEDS ORDERED: DOXY100C PO (12:17)
[2023-08-28] MEDS ORDERED: SODI10PO PO (12:17)
[2023-08-28 12:28] VITALS: BP_SYST 149; PULSE 78; RESP 18; TEMP 97.2; O2SAT 97
[2023-08-28] MEDS ORDERED: EPOETIN ALFA 4,000 UNITS/ML VIAL SUBCUT SCH (17:00)
== END 2023-08-28 15:15 | disposition home or self-care (01) | DRG 557 ==
LOC: SED 09:04 → SMU 13:54
PROVIDERS: ADMIT General Practice; ATTEND General Practice
PROC: 30233N1 Transfusion of Nonautologous Red Blood Cells into Peripheral Vein, Percutaneous Approach (ICD-10-PCS; principal; 2023-08-26)
DX: M70.21 Olecranon bursitis, right elbow (principal); N17.0 Acute kidney failure with tubular necrosis; E44.0 Moderate protein-calorie malnutrition; L03.113 Cellulitis of right upper limb; I12.0 Hypertensive chronic kidney disease with stage 5 chronic kidney disease or end stage renal disease; N18.5 Chronic kidney disease, stage 5; D63.1 Anemia in chronic kidney disease; E11.319 Type 2 diabetes mellitus with unspecified diabetic retinopathy without macular edema; E11.22 Type 2 diabetes mellitus with diabetic chronic kidney disease; D69.6 Thrombocytopenia, unspecified; J45.909 Unspecified asthma, uncomplicated; F17.210 Nicotine dependence, cigarettes, uncomplicated; E87.5 Hyperkalemia; E78.5 Hyperlipidemia, unspecified; E11.51 Type 2 diabetes mellitus with diabetic peripheral angiopathy without gangrene; K76.0 Fatty (change of) liver, not elsewhere classified; N40.0 Benign prostatic hyperplasia without lower urinary tract symptoms; Z89.511 Acquired absence of right leg below knee; Z88.8 Allergy status to other drugs, medicaments and biological substances; Z79.899 Other long term (current) drug therapy; Z88.0 Allergy status to penicillin; Z68.27 Body mass index [BMI] 27.0-27.9, adult; Z79.4 Long term (current) use of insulin
CPT/HCPCS: 36415; 71045; 73200-TC; 76770; 80048; 80053; 80307; 81000; 81001; 81015; 82272; 82948; 83037; 83540; 83550; 83605; 83735; 83970; 84100; 84132; 85025; 85651; 86886; 86900; 86901; 86920; 87040; 87081; 97110-GP; 97112-GP; 97116-GP; 97530-GP; 99285; J0696; J0885; J1644; J1815; J3370; J3490; J7060; P9021

== ENCOUNTER 2023-10-04 00:56 | Emergency (ER) | payer OTHER, MEDICAID ==
[~2023-10-04] VITALS: Ht 180.3 cm; Wt 86.2 kg
[~2023-10-04 00:56] MED LIST changes: +DOXY100C PO
[2023-10-04 01:02] VITALS: BP_SYST 159; PULSE 77; RESP 18; TEMP 96.8; O2SAT 97
[2023-10-04 01:20] VITALS: BP_SYST 147; PULSE 73; RESP 16; TEMP 97.5; O2SAT 97
== END 2023-10-04 03:25 | disposition home or self-care (01) ==
LOC: SED 00:56
DX: R04.0 Epistaxis (principal); J45.909 Unspecified asthma, uncomplicated; E11.9 Type 2 diabetes mellitus without complications; I10 Essential (primary) hypertension; Z98.890 Other specified postprocedural states; Z88.8 Allergy status to other drugs, medicaments and biological substances; Z79.899 Other long term (current) drug therapy; Z79.2 Long term (current) use of antibiotics
CPT/HCPCS: 99283

== ENCOUNTER 2023-10-14 15:27 | Emergency (ER) | payer OTHER, MEDICAID ==
[~2023-10-14] VITALS: Ht 180.3 cm; Wt 86.2 kg
[2023-10-14 15:34] VITALS: BP_SYST 112; PULSE 78; RESP 18; TEMP 97.5; O2SAT 96
[2023-10-14 18:17] LABS: BASOPHILS % (AUTO) 0.5 % (0.0-2.0); EOSINOPHILS # (AUTO) 0.2 K/uL (0.0-0.4); EOSINOPHILS % (AUTO) 5.4 % (0.0-4.0); HEMATOCRIT 26.9 % (36-54); HEMOGLOBIN 9.3 g/dL (14.0-18.0); LYMPHOCYTES # (AUTO) 0.8 K/uL (1.0-5.5); LYMPHOCYTES % (AUTO) 23.4 % (20.5-51.5); MEAN CORPUSCULAR HEMOGLOBIN 31 pg (27-31); MEAN CORPUSCULAR HGB CONC 35 % (32-36); MEAN CORPUSCULAR VOLUME 89 fL (79.0-98.0); MONOCYTES # (AUTO) 0.2 K/uL (0.0-1.0); MONOCYTES % (AUTO) 6.9 % (1.7-9.3); NEUTROPHILS # (AUTO) 2.3 K/uL (1.8-7.7); NEUTROPHILS % (AUTO) 63.8 % (40.0-70.0); PLATELET COUNT (AUTO) 129 K/uL (130-430); RED BLOOD CELL COUNT(AUTO) 3.01 MIL/uL (4.2-6.2)
[2023-10-14 18:27] LABS: INR 1.1 (0.80-1.20); PROTHROMBIN TIME 11.4 SECS (9.5-12.5)
[2023-10-14 18:28] LABS: WHITE BLOOD COUNT (AUTO) 3.5 K/uL (4.8-10.8)
[2023-10-14 18:40] LABS: CALCIUM 7.3 mg/dL (8.4-11.0); CREATININE 6.4 mg/dL (0.55-1.30)
[2023-10-14 18:43] LABS: POTASSIUM 5.8 mmol/L (3.5-5.1)
[2023-10-14] MEDS ORDERED: cefTRIAXone 1 GM in LIDOCAINE 1%, 20 ML MDV 2.1 ML IM ONE (20:00)
[2023-10-14] MEDS ORDERED: CEPH-548 PO (20:22)
[2023-10-14 20:29] VITALS: BP_SYST 124; PULSE 75; RESP 18; TEMP 97.7; O2SAT 99
== END 2023-10-14 20:30 | disposition home or self-care (01) ==
LOC: SED 15:27
DX: S91.312A Laceration without foreign body, left foot, initial encounter (principal); E11.621 Type 2 diabetes mellitus with foot ulcer; J45.909 Unspecified asthma, uncomplicated; I10 Essential (primary) hypertension; Z98.890 Other specified postprocedural states; Z88.8 Allergy status to other drugs, medicaments and biological substances; Z79.899 Other long term (current) drug therapy; Z79.2 Long term (current) use of antibiotics; X58.XXXA Exposure to other specified factors, initial encounter; Y93.89 Activity, other specified; Y92.89 Other specified places as the place of occurrence of the external cause; Y99.8 Other external cause status
CPT/HCPCS: 36415; 80048; 83605; 85025; 85610; 85730; 93971; 99284

== ENCOUNTER 2023-10-27 07:53 | Emergency (ER) | payer OTHER, MEDICAID ==
[~2023-10-27] VITALS: Ht 177.8 cm; Wt 81.6 kg
[~2023-10-27 07:53] MED LIST changes: +CEPH-548 PO
[2023-10-27 07:56] VITALS: BP_SYST 175; PULSE 95; RESP 17; TEMP 97.3; O2SAT 98
[2023-10-27] MEDS: KETOROLAC TROMETHAMINE 30 MG VIAL IM ONE (08:38)
[2023-10-27] MEDS ORDERED: IBUP-1969 PO (09:44)
[2023-10-27] MEDS ORDERED: ACET-2634 PO (09:44)
[2023-10-27 09:56] VITALS: BP_SYST 175; PULSE 95; RESP 17; TEMP 97.3; O2SAT 98
== END 2023-10-27 10:00 | disposition home or self-care (01) ==
LOC: SED 07:53
DX: S20.212A Contusion of left front wall of thorax, initial encounter (principal); J45.909 Unspecified asthma, uncomplicated; E11.9 Type 2 diabetes mellitus without complications; I10 Essential (primary) hypertension; Z88.4 Allergy status to anesthetic agent; W01.0XXA Fall on same level from slipping, tripping and stumbling without subsequent striking against object, initial encounter; Y93.89 Activity, other specified; Y92.89 Other specified places as the place of occurrence of the external cause; Y99.8 Other external cause status
CPT/HCPCS: 99283; 71100; 96372; J1885

== ENCOUNTER 2023-11-12 11:53 | Emergency (ER) | payer OTHER, MEDICAID ==
[~2023-11-12] VITALS: Ht 180.3 cm; Wt 83.9 kg
[~2023-11-12 11:53] MED LIST changes: +ACET-2634 PO; +IBUP-1969 PO
[2023-11-12 12:13] VITALS: BP_SYST 171; PULSE 94; RESP 18; TEMP 97; O2SAT 100
[2023-11-12 12:56] LABS: BASOPHILS % (AUTO) 1.7 % (0.0-2.0); EOSINOPHILS # (AUTO) 0.3 K/uL (0.0-0.4); EOSINOPHILS % (AUTO) 10.3 % (0.0-4.0); HEMOGLOBIN 8.3 g/dL (14.0-18.0); LYMPHOCYTES # (AUTO) 0.4 K/uL (1.0-5.5); LYMPHOCYTES % (AUTO) 13.8 % (20.5-51.5); MEAN CORPUSCULAR HEMOGLOBIN 30 pg (27-31); MEAN CORPUSCULAR HGB CONC 33 % (32-36); MEAN CORPUSCULAR VOLUME 88 fL (79.0-98.0); MONOCYTES # (AUTO) 0.3 K/uL (0.0-1.0); MONOCYTES % (AUTO) 10.3 % (1.7-9.3); NEUTROPHILS # (AUTO) 1.8 K/uL (1.8-7.7); NEUTROPHILS % (AUTO) 63.9 % (40.0-70.0); PLATELET COUNT (AUTO) 136 K/uL (130-430); RED BLOOD CELL COUNT(AUTO) 2.83 MIL/uL (4.2-6.2); RED CELL DISTRIBUTION WIDTH 17.1 % (9.0-15.0)
[2023-11-12 13:10] LABS: WHITE BLOOD COUNT (AUTO) 2.8 K/uL (4.8-10.8)
[2023-11-12 13:14] LABS: CALCIUM 7.9 mg/dL (8.4-11.0); POTASSIUM 4.6 mmol/L (3.5-5.1)
[2023-11-12 13:18] LABS: CREATININE 7.18 mg/dL (0.55-1.30)
[2023-11-12] MEDS ORDERED: BACITRACIN 1 GM OINT TP ONE (14:21)
[2023-11-12] MEDS: ACETAMINOPHEN 500 MG TABLET PO ONE (18:10)
== END 2023-11-12 14:58 | disposition home or self-care (01) ==
LOC: SED 11:53
DX: S01.01XA Laceration without foreign body of scalp, initial encounter (principal); I12.0 Hypertensive chronic kidney disease with stage 5 chronic kidney disease or end stage renal disease; E11.22 Type 2 diabetes mellitus with diabetic chronic kidney disease; N18.6 End stage renal disease; D63.1 Anemia in chronic kidney disease; J45.909 Unspecified asthma, uncomplicated; Z88.8 Allergy status to other drugs, medicaments and biological substances; Z79.899 Other long term (current) drug therapy; Z79.2 Long term (current) use of antibiotics; W05.0XXA Fall from non-moving wheelchair, initial encounter; Y93.89 Activity, other specified; Y92.89 Other specified places as the place of occurrence of the external cause; Y99.8 Other external cause status
CPT/HCPCS: 36415; 70450-TC; 71045; 80048; 85025; 99284